=== PATIENT | male | born 1975 | race Caucasian/White ===

== ENCOUNTER → 2016-07-16 | Outpatient (CLI) | payer BC ==
[~2016-07-16] MED LIST: LRT5 PO; PRED50TA PO
--- NOTE | 2016-07-16 08:57 | DIAGNOSTIC IMAGING REPORT ---
MRI OF THE RIGHT KNEE WITHOUT CONTRAST CLINICAL HISTORY: Right knee pain. Evaluate for meniscal tear. COMPARISON STUDY: None. TECHNIQUE: Utilizing a 1.5 Reyna magnet and dedicated coil, multiplanar, multiecho imaging of the right knee was performed without intravenous or intraarticular contrast. FINDINGS: Alignment of the right knee is anatomic. There is no joint effusion. The extensor mechanism is intact. There is no marrow edema or marrow replacement. The cruciate and collateral ligaments are intact. There is no significant chondrosis within the 3 compartments of the right knee. The lateral meniscus is intact. There is mild intrasubstance signal within the body and posterior horn of the medial meniscus without articular surface extension. No mass or fluid collection shown adjacent to the right knee. IMPRESSION: 1. Intact cruciate and collateral ligaments. 2. No definite meniscal tear. Mild intrasubstance signal within the body and posterior horn of the medial meniscus without articular surface extension. The findings do not meet MRI criteria for meniscal tear. Electronically signed by: Jw Cooper M.D. 07/16/2016 8:55 AM Dictated Date/Time: 07/16/2016 8:51 AM
== END | disposition home or self-care (01) ==
LOC: C.MRIBC 07:48
PROVIDERS: ATTEND Orthopaedic Surgery
DX: S83.206A Unspecified tear of unspecified meniscus, current injury, right knee, initial encounter (principal); X58.XXXA Exposure to other specified factors, initial encounter

== ENCOUNTER 2024-12-08 21:30 | Inpatient (IN) ==
[2024-12-08 21:59] LABS: Hematocrit (blood only) 42.2 % (42.0-52.0); Hemoglobin 13.9 g/dl (14.0-18.0); Immature Granulocytes # (auto) 0.05 K/uL (0.01-0.20); Immature Granulocytes % (auto) 0.5 %; Mean Corpuscular Hemoglobin 27.1 pg (25.0-34.0); Mean Corpuscular Volume 82.3 fL (80.0-100.0); Platelet Count 256 K/uL (130-400); RDW Standard Deviation 41.0 fL (36.4-46.3); Red Blood Count 5.13 M/uL (4.70-6.10); White Blood Count 11.08 K/ul (4.8-10.8)
[2024-12-08 22:01] LABS: Appearance Urine Turbid (Clear); Bacteria Urine Automated None Seen (None Seen); Cast Urine Automated 0-2 /lpf (0-2); Epithelial Cell Urine Auto 0-2 /hpf (0-2); Glucose Urine UA Negative (Negative); RBC Urine Automated 0-2 /hpf (0-2); WBC Urine Automated 0-5 /hpf (0-5)
[2024-12-08 22:16] LABS: Alanine Aminotransferase 36.0 U/L (7-52); Albumin Globulin Ratio 1.2 (0.9-2); Alkaline Phosphatase 63.0 U/L (34-104); Anion Gap 7.0 (3-11); Bilirubin,Total 0.6 mg/dl (0.2-1.0); Blood Urea Nitrogen 13.0 mg/dl (6-23); Calcium 9.5 mg/dl (8.6-10.3); Carbon Dioxide 29.0 mmol/L (21-32); Chloride 101.0 mmol/L (98-107); Creatinine Clr Calc Pharmacy 105.0 ml/min; Globulin 3.6 gm/dl (2.5-4.0); Glucose 100.0 mg/dl (70-99(Fasting)); Lipase 46.0 U/L (11-82); Potassium 3.8 mmol/L (3.5-5.1); Sodium 137.0 mmol/L (136-145); Total Protein 8.0 gm/dl (6.0-8.3)
[2024-12-08] MEDS: ONDANSETRON INJ 2 MG/ML 2 ML VIAL IV STA (22:47)
[2024-12-08] MEDS: SODIUM CHLORIDE 0.9% 1,000 ML IV ONE (22:47)
[2024-12-08] MEDS: OPTIRAY 320 100ml IV ONE (22:55)
[2024-12-09] MEDS: SODIUM CHLORIDE 0.9% 1,000 ML IV ONE ×2 (01:29→04:11)
[2024-12-09] MEDS: PIPERACILLIN/TAZOBACTAM 4.5 GM/100 ML BAG IV ONE (01:30)
--- NOTE | 2024-12-09 01:46 | CT Scan Report ---
Exam(s): CT ABDOMEN + PELVIS With Contrast IV Amt: 93ml opti 320 EXAM: CT Abdomen and Pelvis With Intravenous Contrast CLINICAL HISTORY: Reason for exam: lower abd pain, constipation, ventral hernias. TECHNIQUE: Axial computed tomography images of the abdomen and pelvis with intravenous contrast. CTDI is 26 mGy and DLP is 1567 mGy-cm. Automated exposure control was utilized for the study. A dose lowering technique was utilized adhering to the principles of ALARA. CONTRAST: Patient received 93ml opti 320 of IV contrast COMPARISON: Report from prior CT chest and abdomen dated 05/23/2007. Images not available. FINDINGS: Lung bases: Unremarkable. No mass. No consolidation. ABDOMEN: Liver: Hepatic steatosis. Gallbladder and bile ducts: Unremarkable. No calcified stones. No ductal dilation. Pancreas: Unremarkable. No mass. No ductal dilation. Spleen: Unremarkable. No splenomegaly. Adrenals: Unremarkable. No mass. Kidneys and ureters: Unremarkable. No solid mass. No hydronephrosis. Stomach and bowel: Colonic diverticulosis. Redundant sigmoid extends into right lower quadrant where there is wall thickening and moderate fat stranding. Small gas bubble in area of fat stranding. May represent acute diverticulitis with localized perforation. Similar focal sigmoid wall thickening in the left lower quadrant around a diverticulum and mild surrounding fat stranding. No obstruction. PELVIS: Appendix: Normal appendix. Bladder: Unremarkable. No mass. Reproductive: Unremarkable as visualized. ABDOMEN and PELVIS: Intraperitoneal space: See above. No significant fluid collection. Bones/joints: Pectus excavatum deformity. No acute fracture. No dislocation. Soft tissues: Multiple surgical clips in the anterior pelvis/prior hernia repair. Small fat containing inguinal hernias. Vasculature: Unremarkable. No abdominal aortic aneurysm. Lymph nodes: Unremarkable. No enlarged lymph nodes. IMPRESSION: Findings described likely represent acute sigmoid diverticulitis at 2 sites, in the right and left lower quadrants, with localized perforation on the right. No abscess. Also correlate with surgical history as inflammatory changes in the lower quadrants are subjacent to multiple surgical clips/hernia repair. Communications: 12/09/24 01:43 Call Doctor Regarding Above results, called Dr. Leal on 12/09 01:42 (-04:00) Electronically signed by: Cheli Graves M.D. 12/09/24 01:44 AM
--- NOTE | 2024-12-09 01:53 | Emergency Department Note ---
Impression & Plan Diverticulitis of large intestine with complication, Sepsis ED Provider Note NAME: KIANA CANNON AGE: 48 SEX: M : 1975 ARRIVES VIA: Walk-In INFORMANT: Patient ED PROVIDER(S): Adam Huffman DO CHIEF COMPLAINT: lower abdominal pain HPI: This is a 48-year-old male with the PMHx of inguinal hernias s/p bilateral repair presenting to [facility] for further evaluation of abdominal pain. Patient reports over the last few days he has developed lower quadrant abdominal pain. Patient states it is now difficult for him to have a bowel movement. Patient states that he has had intermittent nausea but no episodes emesis. Now having fevers. Patient reports his abdominal surgical history of only bilateral inguinal hernia repairs. This was a number of years ago. Patient states that the pain was severe even with movement and on the car ride over to the emergency department. No urinary complaints. Patient denies recent changes in medications or OTC supplements. Patient offers no other complaints, today. ADDITIONAL HISTORY OBTAINED: Per HPI Chronic Medical/Social Conditions Affecting Care: Per HPI PAST MEDICAL HISTORY: See Below PAST SURGICAL HISTORY: See Below FAMILY HISTORY: See Below SOCIAL HISTORY: See Below HOME MEDICATIONS: See Below ALLERGIES: See Below VITALS: See Below PHYSICAL EXAMINATION: GENERAL: Sitting up in bed, alert, well appearing, well nourished, no distress, non-toxic EYE EXAM: normal conjunctiva. PERRL and EOM's grossly intact. OROPHARYNX: no exudate, no erythema, lips, buccal mucosa, and tongue normal and mucous membranes are dry NECK: supple, no nuchal rigidity, no adenopathy, non-tender LUNGS: Clear to auscultation. Normal chest wall mechanics HEART: no murmurs, regular rate, regular rhythm ABDOMEN: abdomen soft, TTP in the lower quadrants, R>>L, no masses, no rebound or guarding. BACK: Back is symmetrical on inspection and there is no deformity, no midline tenderness, no CVA tenderness. SKIN: no rashes and no bruising UPPER EXTREMITIES: upper extremities are grossly normal. LOWER EXTREMITIES: No pitting edema. NEURO EXAM: Normal sensorium, GCS 15, normal speech, no gross weakness of arms, no gross weakness of legs. MEDICAL DECISION MAKING: Differential diagnoses includes but not limited to Appendicitis, bowel obstruction, diverticulitis, malignancy, nephrolithiasis, gastroenteritis, ACS, PNA, pancreatitis, biliary disease, UTI, STI, testicular torsion, esophageal reflux, gastritis, IBD In summary, this is a 48 year old male who presented with abdominal pain. Differential as above. Nursing notes and pertinent past medical records reviewed. Vital signs reviewed and the patient is febrile with HR >90 but otherwise hemodynamically stable. He appears well overall. Doubt significant sepsis. I do not have a concern for severe sepsis or bacteremia at this time. History and presentation revealed abdominal pain in the settting of prior inguinal surgeries. Would consider SBO as well. Physical examination revealed as above. As a result of my initial evaluation, we will plan for IV fluid resuscitation, antiemetics and pain control. Plan for evaluation with CT abdomen/pelvis. Diagnostics interpreted by me include EKG and cardiac monitoring as listed below: -Cardiac Monitoring: An order was placed for continuous cardiac monitoring. The monitor shows a rate of 60-90s with regular rhythm. -ECG: not obtained Patient completed laboratory studies and imaging. Results independently interpreted by me are minimal WBC. Normal electrolytes, UA and LFTs. The patient was managed with 2L of crystalloid. Fever cleared without antipyretics. His pain and nausea had significantly improved on reevaluation. CT abdomen/pelvis was independently interpreted by me as an area of fat stranding and possible free air in the right lower quadrant. This appears to involve the small bowel. The location does not seem consistent with appendicitis but is still possible. I am concerned for appendicitis versus diverticulitis. Will provide IV antibiotics while awaiting formal reads. Patient was given a additional liter of fluid resuscitation. Provided with IV Zosyn. Discussed with radiology regarding report and it appears the patient has complicated diverticulitis with microperforation. Will plan to admit to the hospital for further care. Patient agreeable to this. On multiple reassessments, the patient's pain and nausea had improved. Patient was discussed with the hospitalist team regarding admission and care management assisted with communication. Patient was accepted by the [facility] hospitalist team for admission for complicated diverticulitis. Consults/Care Managements Discussions: Per [facility] ER treatment provided: See above Procedures:none Critical Care: None The chart was completed utilizing Abigail Stewart voice recognition software. Grammatical errors, random word insertions, pronoun errors, and incomplete sentences are an occasional consequence of this system due to software limitations, ambient noise, and hardware issues. Any formal questions or concerns about the content, text, or information contained within the body of this dictation should be directly addressed to the physician for clarification. Past Med/Surg History Problem List (Updated 12/09/24 @ 23:06 by Adam Huffman DO) Sepsis (Acute) Diverticulitis of large intestine with complication (Acute) Acute diverticulitis of intestine Sepsis Medical History (Updated 12/09/24 @ 23:06 by Adam Huffman DO) No chronic diseases present Surgical History (Updated 08/05/18 @ 18:54 by Maxim Davis PA-C) No significant past surgical history Social History Smoking Status: Former smoker Hx Alcohol Use: Yes Hx Substance Use: No Preferred Language: Hebrew Communication Ability: Effective Current Living Situation: Alone Feels Safe at Home: Yes Assistive Devices: None Allergies Allergies Allergy/AdvReac Type Severity Reaction Status Date / Time No Known Allergies Allergy Verified 12/09/24 02:14 Home Meds Home Medications Medication Instructions Recorded Confirmed escitalopram oxalate 10 mg tablet 10 mg PO QAM 12/09/24 12/09/24 fluticasone propionate 50 2 spray intranasal QAM 12/09/24 12/09/24 mcg/actuation nasal spray,suspension meclizine 25 mg tablet 25 mg PO TID PRN Dizziness Or 12/09/24 12/09/24 Vertigo sildenafil 100 mg tablet 100 mg PO PRN Erectile Dysfunction 12/09/24 Results & Data (ED) Vital Signs Vital Signs - 24 hr 12/09/24 00:23 Pulse Rate [Right Finger] 78 Respiratory Rate 16 Respiratory Depth Normal Blood Pressure [Right Arm] 124/77 Blood Pressure Mean [Right Arm] 92 Pulse Oximetry 95 Laboratory Data 12/09/24 04:27 12/09/24 04:27 Lab Results 12/08/24 Range/Units 21:40 WBC 11.08 H (4.8-10.8) K/ul RBC 5.13 (4.70-6.10) M/uL Hgb 13.9 L (14.0-18.0) g/dl Hct 42.2 (42.0-52.0) % MCV 82.3 (80.0-100.0) fL MCH 27.1 (25.0-34.0) pg MCHC 32.9 (32.0-36.0) g/dL RDW Std Deviation 41.0 (36.4-46.3) fL RDW Coeff of Zaira 13.7 (11.5-14.5) % Plt Count 256 (130-400) K/uL MPV 9.9 (9.4-12.4) fL Immature Gran % (Auto) 0.5 % Neut % (Auto) 73.9 % Lymph % (Auto) 16.7 % Cole % (Auto) 7.1 % Eos % (Auto) 1.4 % Baso % (Auto) 0.4 % Neut # (Auto) 8.19 H (1.40-6.50) K/uL Lymph # (Auto) 1.85 (1.20-3.40) K/uL Cole # (Auto) 0.79 H (0.11-0.59) K/uL Eos # (Auto) 0.16 (0.00-0.50) K/uL Baso # (Auto) 0.04 (0.00-0.20) K/uL Immature Gran # (Auto) 0.05 (0.01-0.20) K/uL Sodium 137 (136-145) mmol/L Potassium 3.8 (3.5-5.1) mmol/L Chloride 101 (98-107) mmol/L Carbon Dioxide 29 (21-32) mmol/L Anion Gap 7 (3-11) BUN 13 (6-23) mg/dl Creatinine 1.03 (0.6-1.4) mg/dl Est Cr Clr Drug Dosing 105.0 ml/min eGFR 89.60 BUN/Creatinine Ratio 12.6 (10-20) Glucose 100 H (70-99(Fasting)) mg/dl Calcium 9.5 (8.6-10.3) mg/dl Total Bilirubin 0.6 (0.2-1.0) mg/dl AST 31 (13-39) U/L ALT 36 (7-52) U/L Alkaline Phosphatase 63 (34-104) U/L Total Protein 8.0 (6.0-8.3) gm/dl Albumin 4.4 (3.4-5.0) gm/dl Globulin 3.6 (2.5-4.0) gm/dl Albumin/Globulin Ratio 1.2 (0.9-2) Lipase 46 (11-82) U/L Urine Color Yellow Urine Appearance Turbid A (Clear) Urine pH >= 9.0 H (4.5-7.5) Ur Specific [place] 1.023 (1.000-1.030) Urine Protein 1+ H (Negative) Urine Glucose (UA) Negative (Negative) Urine Ketones Negative (Negative) Urine Blood Negative (Negative) Urine Nitrite Negative (Negative) Urine Bilirubin Negative (Negative) Urine Urobilinogen Negative (Negative) Ur Leukocyte Esterase Negative (Negative) Urine WBC (Auto) 0-5 (0-5) /hpf Urine RBC (Auto) 0-2 (0-2) /hpf U Hyaline Cast (Auto) 0-2 (0-2) /lpf U Epithel Cells (Auto) 0-2 (0-2) /hpf Urine Bacteria (Auto) None Seen (None Seen) Urine Comment Administered Medications Ciprofloxacin/Dexamethasone (Cipro 0.3%/Dexamethasone 0.1% Otic Susp 7.5ml) 4 drops OTL BID RICK Stop: 01/08/25 05:29 Last Admin: 12/09/24 21:41 Dose: 4 drops Documented By: Admin: 12/09/24 05:57 Dose: 4 drops Documented By: ROLDAN Enoxaparin Sodium (Enoxaparin Inj 40 Mg/0.4 Ml Syr) 40 mg SQ QAM RICK Stop: 01/08/25 08:59 Last Admin: 12/09/24 11:32 Dose: 40 mg Documented By: VIVI Acetaminophen (Ofirmev) 1,000 mg in 100 mls @ 400 mls/hr IV Q8H PRN PRN Reason: pain/fever Stop: 12/12/24 02:01 Last Infusion: 12/09/24 19:09 Dose: Infused Documented By: Admin: 12/09/24 18:21 Dose: 400 mls/hr Documented By: Infusion: 12/09/24 09:31 Dose: Infused Documented By: Admin: 12/09/24 09:14 Dose: 400 mls/hr Documented By: VIVI Piperacillin Sod/Tazobactam Sod (Zosyn) 4.5 gm in 100 mls @ 25 mls/hr IV Q8H [facility]; Protocol Stop: 12/19/24 05:59 Last Admin: 12/09/24 21:41 Dose: 25 mls/hr Documented By: Infusion: 12/09/24 18:20 Dose: Infused Documented By: Admin: 12/09/24 14:16 Dose: 25 mls/hr Documented By: Infusion: 12/09/24 10:00 Dose: Infused Documented By: Admin: 12/09/24 05:57 Dose: 25 mls/hr Documented By: ROLDAN Potassium Chloride/Dextrose/Sod Cl (D5nss + 20meq Kcl) 20 meq in 1,000 mls @ 80 mls/hr IV .[id number] RICK Stop: 12/12/24 13:14 Last Admin: 12/09/24 14:16 Dose: 80 mls/hr Documented By: MÓNICA Ketorolac Tromethamine (Ketorolac Tromethamine 15 Mg/Ml Vial) 15 mg IV Q6H PRN PRN Reason: Pain Stop: 12/14/24 03:03 Last Admin: 12/09/24 16:41 Dose: 15 mg Documented By: Admin: 12/09/24 09:15 Dose: 15 mg Documented By: VIVI Discontinued Medications Fentanyl Citrate (Fentanyl Citrate Pf 100 Mcg/2 Ml Vial) 50 mcg IV NOW ONE Stop: 12/08/24 22:35 Last Admin: 12/08/24 22:47 Dose: 50 mcg Documented By: EVERTON Sodium Chloride (Nss) 1,000 mls @ 999 mls/hr IV .[id number] ONE Stop: 12/08/24 23:34 Last Infusion: 12/09/24 00:20 Dose: Infused Documented By: Admin: 12/08/24 22:47 Dose: 999 mls/hr Documented By: NRB Sodium Chloride (Nss) 1,000 mls @ 999 mls/hr IV .Q1H1M ONE Stop: 12/09/24 02:13 Last Infusion: 12/09/24 02:23 Dose: Infused Documented By: Admin: 12/09/24 01:29 Dose: 999 mls/hr Documented By: mls Piperacillin Sod/Tazobactam Sod (Zosyn) 4.5 gm in 100 mls @ 200 mls/hr IV NOW ONE; Protocol Stop: 12/09/24 01:42 Last Infusion: 12/09/24 02:19 Dose: Infused Documented By: Admin: 12/09/24 01:30 Dose: 200 mls/hr Documented By: chaya Sodium Chloride (Nss) 1,000 mls @ 60 mls/hr IV .[id number] ONE Stop: 12/09/24 19:43 Last Infusion: 12/09/24 13:12 Dose: Infused Documented By: Admin: 12/09/24 04:11 Dose: 60 mls/hr Documented By: KRISTA Ioversol (Optiray 320 100ml) 93 ml IV ONCE ONE Stop: 12/08/24 22:56 Last Admin: 12/08/24 22:55 Dose: 93 ml Documented By: AMINATA Ondansetron HCl (Ondansetron Inj 2 Mg/Ml 2 Ml Vial) 4 mg IV NOW STA Stop: 12/08/24 22:35 Last Admin: 12/08/24 22:47 Dose: 4 mg Documented By: NRB Imaging Data Radiologist's Impression: Abdomen/Pelvis CT 12/08/24 22:34 CR Exam(s): CT ABDOMEN + PELVIS With Contrast IV Amt: 93ml opti 320 EXAM: CT Abdomen and Pelvis With Intravenous Contrast CLINICAL HISTORY: Reason for exam: lower abd pain, constipation, ventral hernias. TECHNIQUE: Axial computed tomography images of the abdomen and pelvis with intravenous contrast. CTDI is 26 mGy and DLP is 1567 mGy-cm. Automated exposure control was utilized for the study. A dose lowering technique was utilized adhering to the principles of ALARA. CONTRAST: Patient received 93ml opti 320 of IV contrast COMPARISON: Report from prior CT chest and abdomen dated 05/23/2007. Images not available. FINDINGS: Lung bases: Unremarkable. No mass. No consolidation. ABDOMEN: Liver: Hepatic steatosis. Gallbladder and bile ducts: Unremarkable. No calcified stones. No ductal dilation. Pancreas: Unremarkable. No mass. No ductal dilation. Spleen: Unremarkable. No splenomegaly. Adrenals: Unremarkable. No mass. Kidneys and ureters: Unremarkable. No solid mass. No hydronephrosis. Stomach and bowel: Colonic diverticulosis. Redundant sigmoid extends into right lower quadrant where there is wall thickening and moderate fat stranding. Small gas bubble in area of fat stranding. May represent acute diverticulitis with localized perforation. Similar focal sigmoid wall thickening in the left lower quadrant around a diverticulum and mild surrounding fat stranding. No obstruction. PELVIS: Appendix: Normal appendix. Bladder: Unremarkable. No mass. Reproductive: Unremarkable as visualized. ABDOMEN and PELVIS: Intraperitoneal space: See above. No significant fluid collection. Bones/joints: Pectus excavatum deformity. No acute fracture. No dislocation. Soft tissues: Multiple surgical clips in the anterior pelvis/prior hernia repair. Small fat containing inguinal hernias. Vasculature: Unremarkable. No abdominal aortic aneurysm. Lymph nodes: Unremarkable. No enlarged lymph nodes. IMPRESSION: Findings described likely represent acute sigmoid diverticulitis at 2 sites, in the right and left lower quadrants, with localized perforation on the right. No abscess. Also correlate with surgical history as inflammatory changes in the lower quadrants are subjacent to multiple surgical clips/hernia repair. Communications: 12/09/24 01:43 Call Doctor Regarding Above results, called Dr. Leal on 12/09 01:42 (-04:00) Electronically signed by: Cheli Graves M.D. 12/09/24 01:44 AM Discharge Plan Visit Data Chief Complaint: Abdominal Pain Stated Complaint: ABD PAIN, FEVER, NAUSEA, HEADACHE, DIZZINESS ED Provider: Adam Huffman Discharge Problem: Diverticulitis of large intestine with complication, Sepsis Patient Disposition: Admitted As Inpatient Condition: Fair Discharge Instructions Interventions: ED Discharge Assessment Last Done: 12/09/24 02:46
--- NOTE | 2024-12-09 02:00 | History & Physical Report ---
Date of Service December 09, 2024 Assessment & Plan (1) Sepsis: Plan: Assessment and plan below following discussion of case with ED provider and reviewing patient history/pertinent normal/abnormal diagnostic test results. Sepsis Secondary to complicated diverticulitis Otitis externa left Persistent left ear pain post outpatient Rx CHANTE on CPAP Mood disorder, stable Past tobacco abuse Admit to MedSurg CS, Zosyn Strict n.p.o. General Surgery consult re: perforated diverticulitis Ciprodex course for otitis externa, outpatient ENT consult as scheduled DVT prophylaxis per Lovenox subcu Full code Text document was generated using [employer] voice recognition software. It may contain grammatical or spelling errors. Kindly contact undersigned for clarification of any documentation item in question. History of Present Illness Chief Complaint: Abdominal pain Primary Care Provider: Kendy Everett MD History obtained from patient and records. Medical history significant for sigmoid diverticulosis, CHANTE on CPAP, mood disorder, past tobacco abuse. Few days ago, patient noted constipation symptoms which escalated to intense pain yesterday. Fever, chills at home. Denies chest pain, SOB. IV Zosyn administered at the ER for perforated diverticulitis. Medical History as above Recent outpatient cefdinir and prednisone course for left ear pain attributed to middle ear congestion. Outpatient ENT consult scheduled January, due to persistent symptoms 2023 colonoscopy showed sigmoid diverticulosis Surgical History : Dental surgery, hernia repair, vasectomy Family History : DM, leukemia, stroke, skin cancer Personal/Social history : Past tobacco abuse, occasional EtOH intake, [employer] employee Allergies Allergy/AdvReac Type Severity Reaction Status Date / Time No Known Allergies Allergy Verified 12/09/24 02:14 Home Medications Medication Instructions Recorded Confirmed Type escitalopram oxalate 10 mg tablet 10 mg PO QAM 12/09/24 12/09/24 History fluticasone propionate 50 2 spray intranasal QAM 12/09/24 12/09/24 History mcg/actuation nasal spray,suspension meclizine 25 mg tablet 25 mg PO TID PRN Dizziness Or 12/09/24 12/09/24 History Vertigo sildenafil 100 mg tablet 100 mg PO PRN Erectile Dysfunction 12/09/24 History Past Med/Surg History Problem List (Updated 12/09/24 @ 23:06 by Adam Huffman DO) Sepsis (Acute) Diverticulitis of large intestine with complication (Acute) Acute diverticulitis of intestine Sepsis Medical History (Updated 12/09/24 @ 23:06 by Adam Huffman DO) No chronic diseases present Surgical History (Updated 08/05/18 @ 18:54 by Maxim Davis PA-C) No significant past surgical history Social History Smoking Status: Former smoker Hx Alcohol Use: Yes Hx Substance Use: No Preferred Language: Eritrean Communication Ability: Effective Current Living Situation: Alone Feels Safe at Home: Yes Assistive Devices: None Review of Systems Review of Systems: As per HPI, all other systems reviewed and negative Physical Exam Physical Exam: GENERAL: Comfortable, pleasant, obese, no respiratory distress SKIN: Normal color, warm HEENT: [place] palpebral conjunctivae, no ptosis, dry buccal mucosa AD: Retained cerumen, intact TM : Retained cerumen, hyperemic EAC, TM not fully visualized NECK : Supple, no tenderness CHEST : CTA, no tenderness HEART : RRR, no obvious murmurs ABDOMEN: Some distention, lower abdominal tenderness EXTREMITIES : No LE swelling/tenderness, palpable pulses, no other conspicuous deformities noted NEUROLOGIC : Coherent, no facial asymmetry, no other gross focality Results & Data Results & Data Vital Signs (Past 12 Hours) Vital Signs Temp Pulse Pulse Resp BP BP Pulse Ox 12/09/24 00:23 78 16 124/77 95 12/08/24 21:32 38.5 C H 95 H 18 152/80 H 96 O2 Del Method 12/09/24 00:23 12/08/24 21:32 Room Air Laboratory Results Laboratory Results WBC 11.08 K/ul (4.8-10.8) H 12/08/24 21:40 RBC 5.13 M/uL (4.70-6.10) 12/08/24 21:40 Hgb 13.9 g/dl (14.0-18.0) L 12/08/24 21:40 Hct 42.2 % (42.0-52.0) 12/08/24 21:40 MCV 82.3 fL (80.0-100.0) 12/08/24 21:40 MCH 27.1 pg (25.0-34.0) 12/08/24 21:40 MCHC 32.9 g/dL (32.0-36.0) 12/08/24 21:40 RDW Std Deviation 41.0 fL (36.4-46.3) 12/08/24 21:40 RDW Coeff of Zaira 13.7 % (11.5-14.5) 12/08/24 21:40 Plt Count 256 K/uL (130-400) 12/08/24 21:40 MPV 9.9 fL (9.4-12.4) 12/08/24 21:40 Immature Gran % (Auto) 0.5 % 12/08/24 21:40 Neut % (Auto) 73.9 % 12/08/24 21:40 Lymph % (Auto) 16.7 % 12/08/24 21:40 [place] % (Auto) 7.1 % 12/08/24 21:40 Eos % (Auto) 1.4 % 12/08/24 21:40 Baso % (Auto) 0.4 % 12/08/24 21:40 Neut # (Auto) 8.19 K/uL (1.40-6.50) H 12/08/24 21:40 Lymph # (Auto) 1.85 K/uL (1.20-3.40) 12/08/24 21:40 [place] # (Auto) 0.79 K/uL (0.11-0.59) H 12/08/24 21:40 Eos # (Auto) 0.16 K/uL (0.00-0.50) 12/08/24 21:40 Baso # (Auto) 0.04 K/uL (0.00-0.20) 12/08/24 21:40 Immature Gran # (Auto) 0.05 K/uL (0.01-0.20) 12/08/24 21:40 Sodium 137 mmol/L (136-145) 12/08/24 21:40 Potassium 3.8 mmol/L (3.5-5.1) 12/08/24 21:40 Chloride 101 mmol/L (98-107) 12/08/24 21:40 Carbon Dioxide 29 mmol/L (21-32) 12/08/24 21:40 Anion Gap 7 (3-11) 12/08/24 21:40 BUN 13 mg/dl (6-23) 12/08/24 21:40 Creatinine 1.03 mg/dl (0.6-1.4) 12/08/24 21:40 Est Cr Clr Drug Dosing 105.0 ml/min 12/08/24 21:40 eGFR 89.60 12/08/24 21:40 BUN/Creatinine Ratio 12.6 (10-20) 12/08/24 21:40 Glucose 100 mg/dl (70-99(Fasting)) H 12/08/24 21:40 Calcium 9.5 mg/dl (8.6-10.3) 12/08/24 21:40 Total Bilirubin 0.6 mg/dl (0.2-1.0) 12/08/24 21:40 AST 31 U/L (13-39) 12/08/24 21:40 ALT 36 U/L (7-52) 12/08/24 21:40 Alkaline Phosphatase 63 U/L (34-104) 12/08/24 21:40 Total Protein 8.0 gm/dl (6.0-8.3) 12/08/24 21:40 Albumin 4.4 gm/dl (3.4-5.0) 12/08/24 21:40 Globulin 3.6 gm/dl (2.5-4.0) 12/08/24 21:40 Albumin/Globulin Ratio 1.2 (0.9-2) 12/08/24 21:40 Lipase 46 U/L (11-82) 12/08/24 21:40 Urine Color Yellow 12/08/24 21:40 Urine Appearance Turbid (Clear) A 12/08/24 21:40 Urine pH >= 9.0 (4.5-7.5) H 12/08/24 21:40 Ur Specific [place] 1.023 (1.000-1.030) 12/08/24 21:40 Urine Protein 1+ (Negative) H 12/08/24 21:40 Urine Glucose (UA) Negative (Negative) 12/08/24 21:40 Urine Ketones Negative (Negative) 12/08/24 21:40 Urine Blood Negative (Negative) 12/08/24 21:40 Urine Nitrite Negative (Negative) 12/08/24 21:40 Urine Bilirubin Negative (Negative) 12/08/24 21:40 Urine Urobilinogen Negative (Negative) 12/08/24 21:40 Ur Leukocyte Esterase Negative (Negative) 12/08/24 21:40 Urine WBC (Auto) 0-5 /hpf (0-5) 12/08/24 21:40 Urine RBC (Auto) 0-2 /hpf (0-2) 12/08/24 21:40 U Hyaline Cast (Auto) 0-2 /lpf (0-2) 12/08/24 21:40 U Epithel Cells (Auto) 0-2 /hpf (0-2) 12/08/24 21:40 Urine Bacteria (Auto) None Seen (None Seen) 12/08/24 21:40 Urine Comment 12/08/24 21:40 Impressions Abdomen/Pelvis CT 12/08/24 22:34 CR Exam(s): CT ABDOMEN + PELVIS With Contrast IV Amt: 93ml opti 320 EXAM: CT Abdomen and Pelvis With Intravenous Contrast CLINICAL HISTORY: Reason for exam: lower abd pain, constipation, ventral hernias. TECHNIQUE: Axial computed tomography images of the abdomen and pelvis with intravenous contrast. CTDI is 26 mGy and DLP is 1567 mGy-cm. Automated exposure control was utilized for the study. A dose lowering technique was utilized adhering to the principles of ALARA. CONTRAST: Patient received 93ml opti 320 of IV contrast COMPARISON: Report from prior CT chest and abdomen dated 05/23/2007. Images not available. FINDINGS: Lung bases: Unremarkable. No mass. No consolidation. ABDOMEN: Liver: Hepatic steatosis. Gallbladder and bile ducts: Unremarkable. No calcified stones. No ductal dilation. Pancreas: Unremarkable. No mass. No ductal dilation. Spleen: Unremarkable. No splenomegaly. Adrenals: Unremarkable. No mass. Kidneys and ureters: Unremarkable. No solid mass. No hydronephrosis. Stomach and bowel: Colonic diverticulosis. Redundant sigmoid extends into right lower quadrant where there is wall thickening and moderate fat stranding. Small gas bubble in area of fat stranding. May represent acute diverticulitis with localized perforation. Similar focal sigmoid wall thickening in the left lower quadrant around a diverticulum and mild surrounding fat stranding. No obstruction. PELVIS: Appendix: Normal appendix. Bladder: Unremarkable. No mass. Reproductive: Unremarkable as visualized. ABDOMEN and PELVIS: Intraperitoneal space: See above. No significant fluid collection. Bones/joints: Pectus excavatum deformity. No acute fracture. No dislocation. Soft tissues: Multiple surgical clips in the anterior pelvis/prior hernia repair. Small fat containing inguinal hernias. Vasculature: Unremarkable. No abdominal aortic aneurysm. Lymph nodes: Unremarkable. No enlarged lymph nodes. IMPRESSION: Findings described likely represent acute sigmoid diverticulitis at 2 sites, in the right and left lower quadrants, with localized perforation on the right. No abscess. Also correlate with surgical history as inflammatory changes in the lower quadrants are subjacent to multiple surgical clips/hernia repair. Communications: 12/09/24 01:43 Call Doctor Regarding Above results, called Dr. Leal on 12/09 01:42 (-04:00) Electronically signed by: Cheli Graves M.D. 12/09/24 01:44 AM
[2024-12-09] MEDS ORDERED: PROMETHAZINE 12.5 MG/50.5 ML BAG IV PRN (02:02)
[2024-12-09 04:51] LABS: Hematocrit (blood only) 35.7 % (42.0-52.0); Hemoglobin 11.9 g/dl (14.0-18.0); Immature Granulocytes # (auto) 0.02 K/uL (0.01-0.20); Immature Granulocytes % (auto) 0.2 %; Mean Corpuscular Hemoglobin 27.6 pg (25.0-34.0); Mean Corpuscular Volume 82.8 fL (80.0-100.0); Platelet Count 195 K/uL (130-400); RDW Standard Deviation 41.9 fL (36.4-46.3); Red Blood Count 4.31 M/uL (4.70-6.10); White Blood Count 8.22 K/ul (4.8-10.8)
[2024-12-09 05:06] LABS: Anion Gap 4.0 (3-11); Blood Urea Nitrogen 12.0 mg/dl (6-23); Calcium 8.2 mg/dl (8.6-10.3); Carbon Dioxide 24.0 mmol/L (21-32); Chloride 107.0 mmol/L (98-107); Creatinine Clr Calc Pharmacy 124.3 ml/min; Glucose 102.0 mg/dl (70-99(Fasting)); Potassium 3.8 mmol/L (3.5-5.1); Sodium 135.0 mmol/L (136-145)
[2024-12-09] MEDS: CIPRO 0.3%/DEXAMETHASONE 0.1% OTIC SUSP 7.5ML OTL SCH (05:57)
[2024-12-09] MEDS: PIPERACILLIN/TAZOBACTAM 4.5 GM/100 ML BAG IV SCH (05:57)
[2024-12-09] MEDS: ACETAMINOPHEN 1,000 MG/100 ML VIAL IV PRN (09:14)
[2024-12-09] MEDS: KETOROLAC TROMETHAMINE 15 MG/ML VIAL IV PRN (09:15)
--- NOTE | 2024-12-09 09:51 | Surgery Consultation ---
Date of Consultation December 09, 2024 Assessment & Plan (1) Acute diverticulitis of intestine: Plan 2 areas involving the left colon. The more distal area contains a small localized perforation No acute surgical intervention, agree with conservative management Continue IV abx, IVF, strict NPO May have chemical DVT ppx. SCDs while in bed and ambulate as tolerated Antiemetic and pain control as needed History of Present Illness Attending Physician: Edison Banuelos MD History of Present Illness 48M PSHx includes an umbilical hernia repair 2019 and potential questionable b/l inguinal hernia repairs 2018 the patient is unsure, he has no significant PMHx. Patient presented to the ED lst night due to ongoing abdominal pain. He was feeling really gassy starting Thursday night. By am he began having lower abdominal pain. By 7:30/8:pm last night he began having increased pain, fever, nausea, cold sweats and dizziness and presented to the ED last night around 9:00pm. He reports he has been having irregular BMs since about Thursday. This am on my discussion with the patient he states he is managing the pain, feeling a lot better than he did when he came in last night. He states he has never had pain like this in the past and was unaware that he had diverticulosis. Last colonoscopy 1 year ago in August and was reportedly WNL. No known FHX of colon cancer. ED work up revealed an initial fever at 38.5, a mild leukocytosis on initial blood work at 11.03 that has since resolved. CT A/P reveals inflammation at the descending colon in an area of diverticulosis in addition to inflammation at an area of the sigmoid colon where diverticulosis is also present that sits on the right side of the abdomen. This appears to be diverticulitis at both locations with a contained perforation on the right. Allergies Allergy/AdvReac Type Severity Reaction Status Date / Time No Known Allergies Allergy Verified 12/09/24 02:14 Home Medications Medication Instructions Recorded Confirmed Type escitalopram oxalate 10 mg tablet 10 mg PO QAM 12/09/24 12/09/24 History fluticasone propionate 50 2 spray intranasal QAM 12/09/24 12/09/24 History mcg/actuation nasal spray,suspension meclizine 25 mg tablet 25 mg PO TID PRN Dizziness Or 08/22/25 08/22/25 History Vertigo sildenafil 100 mg tablet 100 mg PO PRN Erectile Dysfunction 12/09/24 History Patient History Medical History (Updated 12/09/24 @ 10:14 by Hema Collins DO) No chronic diseases present Surgical History (Updated 08/05/18 @ 18:54 by Maxim Davis PA-C) No significant past surgical history Social History Smoking Status: Former smoker Hx Alcohol Use: Yes Hx Substance Use: No Preferred Language: Greenlandic Current Living Situation: Alone Feels Safe at Home: Yes Review of Systems Constitutional: + fever, + chills and + sweats; no body aches and no weakness Respiratory: no cough, no chest congestion, no dyspnea and no wheezing Cardiovascular: no chest pain, no palpitations, no syncope and no edema Gastrointestinal: + abdominal pain (lower abdomen) and + n ausea; no vomiting and no diarrhea/loose stools Physical Exam Constitutional: well developed and healthy appearing; not disheveled, not in distress and not diaphoretic Respiratory: normal respiratory effort; no respiratory distress, no labored breathing and does not use accessory muscles Cardiovascular: Rate/Rhythm: regular rate; not tachycardic Extremities: no calf tenderness and no edema Gastrointestinal (Abdomen): Percussion/Palpation: + abdomen tender (b/l lower abdomen), + guarding (voluntary) and abdomen soft; abdomen not rigid and abdomen not firm Results & Data Vital Signs (Past 12 Hours) Vital Signs Temp Pulse Resp BP Pulse Ox O2 Del Method 12/09/24 09:10 69 18 139/80 95 Room Air 12/09/24 03:09 37.4 C 68 18 129/76 95 Room Air 12/09/24 00:23 78 16 124/77 95 Diagnostic Findings I personally reviewed his CT A/P revealing diverticulitis in two parts of the left colon. The more distal area of inflammation in the left colon is at the sigmoid colon which sits on the right side of the abdomen. Results Complete Blood Count Results: RBC 4.31 M/uL (4.70-6.10) L 12/09/24 WBC 8.22 K/ul (4.8-10.8) 12/09/24 Hgb 11.9 g/dl (14.0-18.0) L 12/09/24 Hct 35.7 % (42.0-52.0) L 12/09/24 Plt Count 195 K/uL (130-400) 12/09/24 Results CMP Results: Sodium 135 mmol/L (136-145) L 12/09/24 Potassium 3.8 mmol/L (3.5-5.1) 12/09/24 Chloride 107 mmol/L (98-107) 12/09/24 Carbon Dioxide 24 mmol/L (21-32) 12/09/24 Anion Gap 4 (3-11) 12/09/24 BUN 12 mg/dl (6-23) 12/09/24 Creatinine 0.87 mg/dl (0.6-1.4) 12/09/24 eGFR 106.44 12/09/24 BUN/Creatinine Ratio 13.8 (10-20) 12/09/24 Glucose 102 mg/dl (70-99(Fasting)) H 12/09/24 Calcium 8.2 mg/dl (8.6-10.3) L 12/09/24 Total Bilirubin 0.6 mg/dl (0.2-1.0) 12/08/24 AST 31 U/L (13-39) 12/08/24 ALT 36 U/L (7-52) 12/08/24 Alkaline Phosphatase 63 U/L (34-104) 12/08/24 Total Protein 8.0 gm/dl (6.0-8.3) 12/08/24 Albumin 4.4 gm/dl (3.4-5.0) 12/08/24 Globulin 3.6 gm/dl (2.5-4.0) 12/08/24 Albumin/Globulin Ratio 1.2 (0.9-2) 12/08/24 PG Care Time/CCT Total # of Minutes Spent Total Time Spent with Patient: Total time spent is greater than 50% in coordination of care (as documented) at patient's floor/unit and/or counseling patient: Coding Level of Care Code 26915 OFFICE CONSULT LVL Diagnoses Acute diverticulitis of intestine K57.92
[2024-12-09] MEDS: ENOXAPARIN INJ 40 MG/0.4 ML SYR SQ SCH (11:32)
[2024-12-09] MEDS: D5NSS + 20MEQ KCL 20 MEQ/1,000 ML BAG IV SCH (14:16)
--- NOTE | 2024-12-09 17:39 | Hospitalist Progress Note ---
Date of Service December 09, 2024 Assessment & Plan (1) Sepsis: Plan: Assessment and plan below following discussion of case with ED provider and reviewing patient history/pertinent normal/abnormal diagnostic test results. Sepsis Secondary to complicated diverticulitis Otitis externa left Persistent left ear pain post outpatient Rx CHANTE on CPAP Mood disorder, stable Past tobacco abuse Admit to [facility] n.p.o. General Surgery consult re: perforated diverticulitis Ciprodex course for otitis externa, outpatient ENT consult as scheduled DVT prophylaxis per Lovenox subcu Full code Text document was generated using [employer] recognition software. It may contain grammatical or spelling errors. Kindly contact undersigned for clarification of any documentation item in question. Admission and Anticipated Discharge Date Admission Date: December 09, 2024 Results & Data Results & Data Vital Signs (Past 12 Hours) Vital Signs Temp Pulse Resp BP Pulse Ox O2 Del Method 12/09/24 13:05 36.9 C 95 H 18 145/83 H 95 Room Air 12/09/24 09:10 69 18 139/80 95 Room Air
[2024-12-10 06:58] LABS: Hematocrit (blood only) 37.0 % (42.0-52.0); Hemoglobin 12.4 g/dl (14.0-18.0); Immature Granulocytes # (auto) 0.04 K/uL (0.01-0.20); Immature Granulocytes % (auto) 0.5 %; Mean Corpuscular Hemoglobin 27.7 pg (25.0-34.0); Mean Corpuscular Volume 82.6 fL (80.0-100.0); Platelet Count 218 K/uL (130-400); RDW Standard Deviation 40.6 fL (36.4-46.3); Red Blood Count 4.48 M/uL (4.70-6.10); White Blood Count 8.39 K/ul (4.8-10.8)
[2024-12-10 08:00] LABS: Alanine Aminotransferase 48.0 U/L (7-52); Albumin Globulin Ratio 1.1 (0.9-2); Alkaline Phosphatase 54.0 U/L (34-104); Anion Gap 6.0 (3-11); Bilirubin,Total 1.2 mg/dl (0.2-1.0); Blood Urea Nitrogen 9.0 mg/dl (6-23); Calcium 9.0 mg/dl (8.6-10.3); Carbon Dioxide 26.0 mmol/L (21-32); Chloride 106.0 mmol/L (98-107); Creatinine Clr Calc Pharmacy 128.7 ml/min; Globulin 3.3 gm/dl (2.5-4.0); Glucose 109.0 mg/dl (70-99(Fasting)); Potassium 4.0 mmol/L (3.5-5.1); Sodium 138.0 mmol/L (136-145); Total Protein 7.0 gm/dl (6.0-8.3)
--- NOTE | 2024-12-10 08:15 | Surgery Progress Note ---
Date of Service December 10, 2024 Assessment & Plan (1) Acute diverticulitis of intestine: Plan Continue with current conservative measures with IV abx, IVF Pt may have a few ice chips today for mouth comfort, otherwise maintain NPO status May have chemical and mechanical DVT ppx, ambulate Surgery will continue to follow Admission and Anticipated Discharge Date Admission Date: December 09, 2024 Subjective Pt seen and examined this am. He states his pain is improved this am compared to this time yesterday. Continues to pass flatus. [place] his fever broke last night and he had sweats this am. Did have a temp recorded at 2300 last night. Physical Exam Constitutional: average body habitus; not ill appearing, not in distress and not diaphoretic Respiratory: normal respiratory effort; no respiratory distress, no labored breathing and does not use accessory muscles Cardiovascular: Rate/Rhythm: regular rate; not tachycardic Gastrointestinal (Abdomen): Inspection/Auscultation: abdomen not distended Percussion/Palpation: + abdomen tender (lower abdomen greatest suprapubic) and abdomen soft; no guarding and abdomen not rigid Results & Data Vital Signs (Past 12 Hours) Vital Signs Temp Pulse Resp BP Pulse Ox O2 Del Method 12/10/24 07:54 37 C 71 16 131/79 94 Room Air 12/09/24 23:07 37.8 C H 60 18 132/72 99 Room Air Results Complete Blood Count Results: RBC 4.48 M/uL (4.70-6.10) L 12/10/24 WBC 8.39 K/ul (4.8-10.8) 12/10/24 Hgb 12.4 g/dl (14.0-18.0) L 12/10/24 Hct 37.0 % (42.0-52.0) L 12/10/24 Plt Count 218 K/uL (130-400) 12/10/24 Results CMP Results: Sodium 138 mmol/L (136-145) 12/10/24 Potassium 4.0 mmol/L (3.5-5.1) 12/10/24 Chloride 106 mmol/L (98-107) 12/10/24 Carbon Dioxide 26 mmol/L (21-32) 12/10/24 Anion Gap 6 (3-11) 12/10/24 BUN 9 mg/dl (6-23) 12/10/24 Creatinine 0.84 mg/dl (0.6-1.4) 12/10/24 eGFR 107.57 12/10/24 BUN/Creatinine Ratio 10.7 (10-20) 12/10/24 Glucose 109 mg/dl (70-99(Fasting)) H 12/10/24 Calcium 9.0 mg/dl (8.6-10.3) 12/10/24 Total Bilirubin 1.2 mg/dl (0.2-1.0) H 12/10/24 AST 30 U/L (13-39) 12/10/24 ALT 48 U/L (7-52) 12/10/24 Alkaline Phosphatase 54 U/L (34-104) 12/10/24 Total Protein 7.0 gm/dl (6.0-8.3) 12/10/24 Albumin 3.7 gm/dl (3.4-5.0) 12/10/24 Globulin 3.3 gm/dl (2.5-4.0) 12/10/24 Albumin/Globulin Ratio 1.1 (0.9-2) 12/10/24 PG Care Time/CCT Total # of Minutes Spent Total Time Spent with Patient: Total time spent is greater than 50% in coordination of care (as documented) at patient's floor/unit and/or counseling patient: Coding Level of Care Code 02270 SUB INP/OBS CARE 05/14MIN Diagnoses Acute diverticulitis of intestine K57.92
[2024-12-10 13:48] VITALS: RESP 18
--- NOTE | 2024-12-10 18:27 | Hospitalist Progress Note ---
Date of Service December 10, 2024 Assessment & Plan (1) Sepsis: Plan: Assessment and plan below following discussion of case with ED provider and reviewing patient history/pertinent normal/abnormal diagnostic test results. Sepsis Secondary to complicated diverticulitis - clinically improving fever resolving - blood cultures pending - continue IV Zosyn started on ice chips continue IV fluids - appreciate Gen Surg recommendations Otitis externa left Persistent left ear pain post outpatient Rx CHANTE on CPAP Mood disorder, stable Past tobacco abuse DVT prophylaxis per Lovenox subcu Full code Admission and Anticipated Discharge Date Admission Date: December 09, 2024 Subjective seen resting in bed, comfortable states abdominal pain is better no nausea no BMs yet, (+) flatus no fever/chills no chest pain, dyspnea, palpitations, dizziness no other symptoms Review of Systems Review of Systems: all noted and negative except for above Physical Exam Physical Exam: General- oriented x 3, not in distress, speaks in sentences with no effort or accessory muscle use Eyes- anicteric Neck- no JVD Lungs- clear breath sounds bilaterally, no rales/wheezes Heart- normal rate, regular rhythm; no murmurs Abdomen- normal bowel sounds, nondistended, soft, very mild tenderness lower quadrants Extremities- no pretibial edema, no calf tenderness Neuro- alert, oriented x 3; no gross focal neurologic deficits Skin- warm & dry Results & Data Results & Data Vital Signs (Past 12 Hours) Vital Signs Temp Pulse Resp BP Pulse Ox O2 Del Method 12/10/24 13:47 37.5 C 92 H 18 128/76 93 Room Air 12/10/24 07:54 37 C 71 16 131/79 94 Room Air all noted and reviewed including below
--- NOTE | 2024-12-11 05:04 | Surgery Progress Note ---
Date of Service December 11, 2024 Assessment & Plan (1) Acute diverticulitis of intestine: Plan: Patient has been admitted on the hospitalist service. Surgical recommendations are as follows: Continue analgesics as needed Continue antiemetics as needed Continue antibiotics in the form of Zosyn Patient is currently n.p.o.can consider resuming diet beginning with clear liquids only if he continues to show clinical improvement this morning Continue IV fluids while n.p.o. for hydration Lovenox is in place for DVT prevention Admission and Anticipated Discharge Date Admission Date: December 09, 2024 Supervising Physician Co-Signing Physician Notes I have seen and examined this patient this am and I agree with this plan, he may have clears. 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 May consider home tomorrow depending on how diet initiation goes today. Subjective Patient is currently resting comfortably in the bed. He notes that he has had significant improvement of his abdominal pain since he has been admitted. He denies any nausea or vomiting. He is passing flatus but has not had a bowel movement since admission. He notes he is urinating without difficulty. Physical Exam Gastrointestinal (Abdomen): Abdomen is soft without distention. There is no rebound tenderness or guarding the patient has pain with palpation which appears to be greatest in the lower abdomen. Results & Data Vital Signs (Past 12 Hours) Vital Signs Temp Pulse Resp BP Pulse Ox O2 Del Method 12/10/24 22:49 36.8 C 72 18 125/75 94 Room Air PG Care Time/CCT Total # of Minutes Spent Total Time Spent with Patient: Total time spent is greater than 50% in coordination of care (as documented) at patient's floor/unit and/or counseling patient: Coding Level of Care Code 66434 SUB INP/OBS CARE 05/14MIN Diagnoses Acute diverticulitis of intestine K57.92
[2024-12-11 09:05] LABS: Hematocrit (blood only) 38.3 % (42.0-52.0); Hemoglobin 12.8 g/dl (14.0-18.0); Immature Granulocytes # (auto) 0.04 K/uL (0.01-0.20); Immature Granulocytes % (auto) 0.5 %; Mean Corpuscular Hemoglobin 26.8 pg (25.0-34.0); Mean Corpuscular Volume 80.1 fL (80.0-100.0); Platelet Count 227 K/uL (130-400); RDW Standard Deviation 38.3 fL (36.4-46.3); Red Blood Count 4.78 M/uL (4.70-6.10); White Blood Count 8.41 K/ul (4.8-10.8)
[2024-12-11 09:21] LABS: Alanine Aminotransferase 50.0 U/L (7-52); Albumin Globulin Ratio 1.1 (0.9-2); Alkaline Phosphatase 58.0 U/L (34-104); Anion Gap 10.0 (3-11); Bilirubin,Total 1.1 mg/dl (0.2-1.0); Blood Urea Nitrogen 11.0 mg/dl (6-23); Calcium 9.4 mg/dl (8.6-10.3); Carbon Dioxide 23.0 mmol/L (21-32); Chloride 104.0 mmol/L (98-107); Creatinine Clr Calc Pharmacy 159.0 ml/min; Globulin 3.6 gm/dl (2.5-4.0); Glucose 107.0 mg/dl (70-99(Fasting)); Potassium 3.8 mmol/L (3.5-5.1); Sodium 137.0 mmol/L (136-145); Total Protein 7.5 gm/dl (6.0-8.3)
--- NOTE | 2024-12-11 18:54 | Hospitalist Progress Note ---
Date of Service December 11, 2024 Assessment & Plan (1) Sepsis: Plan: Assessment and plan below following discussion of case with ED provider and reviewing patient history/pertinent normal/abnormal diagnostic test results. Sepsis Secondary to complicated diverticulitis - clinically improving fever resolving - blood cultures pending - continue IV Zosyn started on ice chips continue IV fluids - appreciate Gen Surg recommendations 12/11 continues to improve overall pain improving, afebrile blood cultures negative so far continue IV Zosyn diet advanced to clears if tolerated, soft diet for breakfast and hopefully discharge if tolerated patient will need colonoscopy 4-6 weeks after this episode Otitis externa left Persistent left ear pain post outpatient Rx CHANTE on CPAP Mood disorder, stable Past tobacco abuse DVT prophylaxis per Lovenox subcu Full code Admission and Anticipated Discharge Date Admission Date: December 09, 2024 Subjective seen resting in bed, comfortable very pleasant states he feels improved day by day less abdominal pain, very minimal about 2/10 no nausea/vomiting (+)normal BM this morning no chills no other symptoms Review of Systems Review of Systems: all noted and negative except for above Physical Exam Physical Exam: General- oriented x 3, not in distress, speaks in sentences with no effort or accessory muscle use Eyes- anicteric Neck- no JVD Lungs- clear breath sounds bilaterally, no rales/wheezes Heart- normal rate, regular rhythm; no murmurs Abdomen- normal bowel sounds, nondistended, soft, very minimal tenderness lower abdomen Extremities- no pretibial edema, no calf tenderness Neuro- alert, oriented x 3; no gross focal neurologic deficits Skin- warm & dry Results & Data Results & Data Vital Signs (Past 12 Hours) Vital Signs Temp Pulse Resp BP Pulse Ox O2 Del Method 12/11/24 14:35 37.6 C H 77 18 125/73 96 Room Air 12/11/24 07:03 36.8 C 76 18 128/76 96 Room Air all noted and reviewed including below
[2024-12-11 22:44] VITALS: PULSE 74
[2024-12-12 06:58] LABS: Hematocrit (blood only) 39.6 % (42.0-52.0); Hemoglobin 13.0 g/dl (14.0-18.0); Immature Granulocytes # (auto) 0.04 K/uL (0.01-0.20); Immature Granulocytes % (auto) 0.6 %; Mean Corpuscular Hemoglobin 27.0 pg (25.0-34.0); Mean Corpuscular Volume 82.3 fL (80.0-100.0); Platelet Count 243 K/uL (130-400); RDW Standard Deviation 39.7 fL (36.4-46.3); Red Blood Count 4.81 M/uL (4.70-6.10); White Blood Count 6.26 K/ul (4.8-10.8)
[2024-12-12 07:08] VITALS: BP 116/75; TEMP 97.9; O2SAT 96
[2024-12-12 07:33] LABS: Alanine Aminotransferase 48.0 U/L (7-52); Albumin Globulin Ratio 1.0 (0.9-2); Alkaline Phosphatase 56.0 U/L (34-104); Anion Gap 7.0 (3-11); Bilirubin,Total 0.7 mg/dl (0.2-1.0); Blood Urea Nitrogen 10.0 mg/dl (6-23); Calcium 9.6 mg/dl (8.6-10.3); Carbon Dioxide 28.0 mmol/L (21-32); Chloride 104.0 mmol/L (98-107); Creatinine Clr Calc Pharmacy 115.0 ml/min; Globulin 3.7 gm/dl (2.5-4.0); Glucose 95.0 mg/dl (70-99(Fasting)); Magnesium 2.2 mg/dl (1.7-2.4); Potassium 3.9 mmol/L (3.5-5.1); Sodium 139.0 mmol/L (136-145); Total Protein 7.5 gm/dl (6.0-8.3)
--- NOTE | 2024-12-12 08:29 | Surgery Progress Note ---
Date of Service December 12, 2024 Assessment & Plan (1) Diverticulitis of large intestine with complication: Plan: Patient here with acute diverticulitis with perforation WBC 6. vitals stable, patient afebrile doing well over the wknd, advanced to liquids with no issues. pain improving. + bowel function may advance to low fiber to continue over the next several wkds and transition to a course of oral abx for home okay for dispo from our standpoint Admission and Anticipated Discharge Date Admission Date: December 09, 2024 Supervising Physician Co-Signing Physician Notes I have seen and examined this patient this am and I agree with this plan. Subjective Patient is feeling well. Pain overall improved. Tolerating liquid diet without n/v. Having + bowel function Physical Exam Physical Exam: awake/alert, no distress Gastrointestinal (Abdomen): improved tenderness overall, mild residual RLQ discomfort to palpation remains Results & Data Vital Signs (Past 12 Hours) Vital Signs Temp Pulse Resp BP Pulse Ox O2 Del Method 12/12/24 07:50 Room Air 12/12/24 07:07 97.9 F 74 18 116/75 96 Room Air 12/11/24 22:43 98.8 F 74 18 121/72 95 Room Air PG Care Time/CCT Total # of Minutes Spent Total Time Spent with Patient: Total time spent is greater than 50% in coordination of care (as documented) at patient's floor/unit and/or counseling patient: Coding Level of Care Code 45613 Post Operative Follow-Up Diagnoses Diverticulitis of large intestine with complication K57.32
--- NOTE | 2024-12-12 12:40 | Discharge Summary ---
Discharge Summary Date of Service December 12, 2024 delayed entry date of service noted above Principal Dx & Hospital Course #1 = Principal Diagnosis (1) Sepsis: 1) Sepsis: Plan: Assessment and plan below following discussion of case with ED provider and reviewing patient history/pertinent normal/abnormal diagnostic test results. Sepsis Secondary to complicated diverticulitis CT abdomen: IMPRESSION: Findings described likely represent acute sigmoid diverticulitis at 2 sites, in the right and left lower quadrants, with localized perforation on the right. No abscess. Also correlate with surgical history as inflammatory changes in the lower quadrants are subjacent to multiple surgical clips/hernia repair. evaluated by General Surgery placed on IV Zosyn, bowel rest, IV fluids, pain medications as needed patient's symptoms improved daily afebrile blood cultures negative diet advanced gradually cleared for discharge by General Surgery discharged on 11 more days of Augmentin to complete 14 day course of antibiotics patient will need colonoscopy 4-6 weeks after this episode Otitis externa left Persistent left ear pain post outpatient Rx discharged on Ciprodex drops 4 more days CHANTE on CPAP Mood disorder, stable Past tobacco abuse Disposition Discharge to home ff up with PCP in 1 week Notes For Next Care Provider Medication Changes From Visit per medical reconciliation Admission HPI Per Admitting Provider History obtained from patient and records. Medical history significant for sigmoid diverticulosis, CHANTE on CPAP, mood disorder, past tobacco abuse. Few days ago, patient noted constipation symptoms which escalated to intense pain yesterday. Fever, chills at home. Denies chest pain, SOB. IV Zosyn administered at the ER for perforated diverticulitis. Medical History as above Recent outpatient cefdinir and prednisone course for left ear pain attributed to middle ear congestion. Outpatient ENT consult scheduled January, due to persistent symptoms 2023 colonoscopy showed sigmoid diverticulosis Surgical History : Dental surgery, hernia repair, vasectomy Family History : DM, leukemia, stroke, skin cancer Personal/Social history : Past tobacco abuse, occasional EtOH intake, [employer] employee Admission Exam Per Admitting Provider GENERAL: Comfortable, pleasant, obese, no respiratory distress SKIN: Normal color, warm HEENT: [place] palpebral conjunctivae, no ptosis, dry buccal mucosa AD: Retained cerumen, intact TM : Retained cerumen, hyperemic EAC, TM not fully visualized NECK : Supple, no tenderness CHEST : CTA, no tenderness HEART : RRR, no obvious murmurs ABDOMEN: Some distention, lower abdominal tenderness EXTREMITIES : No LE swelling/tenderness, palpable pulses, no other conspicuous deformities noted NEUROLOGIC : Coherent, no facial asymmetry, no other gross focality Discharge Exam General- oriented x 3, not in distress, speaks in sentences with no effort or accessory muscle use Eyes- anicteric Neck- no JVD Lungs- clear breath sounds bilaterally, no rales/wheezes Heart- normal rate, regular rhythm; no murmurs Abdomen- normal bowel sounds, nondistended, soft, nontender Extremities- no pretibial edema, no calf tenderness Neuro- alert, oriented x 3; no gross focal neurologic deficits Skin- warm & dry Updated Medication List Medication Instructions Recorded Confirmed Type escitalopram oxalate 10 mg tablet 10 mg PO QAM 12/09/24 12/09/24 History fluticasone propionate 50 2 spray intranasal QAM 12/09/24 12/09/24 History mcg/actuation nasal spray,suspension meclizine 25 mg tablet 25 mg PO TID PRN Dizziness Or 12/09/24 12/09/24 History Vertigo sildenafil 100 mg tablet 100 mg PO PRN Erectile Dysfunction 12/09/24 History amoxicillin 875 mg-potassium 1 tab PO BID 11 days #22 tabs 12/12/24 Rx clavulanate 125 mg tablet ciprofloxacin 0.3 %-dexamethasone 4 drp OTL BID 7 days #7.5 mL 12/12/24 Rx 0.1 % ear drops,suspension Hospital Stay Data Consultations 12/09/24 01:53 ED Decision to Admit Stat 12/09/24 03:05 Consult General Surgery Routine Diagnostic Imagining Performed 12/08/24 22:34 CT abd pelvis IV con only Stat Laboratory Results WBC 6.26 K/ul (4.8-10.8) 12/12/24 06:32 RBC 4.81 M/uL (4.70-6.10) 12/12/24 06:32 Hgb 13.0 g/dl (14.0-18.0) L 12/12/24 06:32 Hct 39.6 % (42.0-52.0) L 12/12/24 06:32 MCV 82.3 fL (80.0-100.0) 12/12/24 06:32 MCH 27.0 pg (25.0-34.0) 12/12/24 06:32 MCHC 32.8 g/dL (32.0-36.0) 12/12/24 06:32 RDW Std Deviation 39.7 fL (36.4-46.3) 12/12/24 06:32 RDW Coeff of Zaira 13.2 % (11.5-14.5) 12/12/24 06:32 Plt Count 243 K/uL (130-400) 12/12/24 06:32 MPV 9.7 fL (9.4-12.4) 12/12/24 06:32 Immature Gran % (Auto) 0.6 % 12/12/24 06:32 Neut % (Auto) 61.6 % 12/12/24 06:32 Lymph % (Auto) 23.8 % 12/12/24 06:32 [place] % (Auto) 10.2 % 12/12/24 06:32 Eos % (Auto) 3.0 % 12/12/24 06:32 Baso % (Auto) 0.8 % 12/12/24 06:32 Neut # (Auto) 3.85 K/uL (1.40-6.50) 12/12/24 06:32 Lymph # (Auto) 1.49 K/uL (1.20-3.40) 12/12/24 06:32 Bradley # (Auto) 0.64 K/uL (0.11-0.59) H 12/12/24 06:32 Eos # (Auto) 0.19 K/uL (0.00-0.50) 12/12/24 06:32 Baso # (Auto) 0.05 K/uL (0.00-0.20) 12/12/24 06:32 Immature Gran # (Auto) 0.04 K/uL (0.01-0.20) 12/12/24 06:32 Sodium 139 mmol/L (136-145) 12/12/24 06:32 Potassium 3.9 mmol/L (3.5-5.1) 12/12/24 06:32 Chloride 104 mmol/L (98-107) 12/12/24 06:32 Carbon Dioxide 28 mmol/L (21-32) 12/12/24 06:32 Anion Gap 7 (3-11) 12/12/24 06:32 BUN 10 mg/dl (6-23) 12/12/24 06:32 Creatinine 0.94 mg/dl (0.6-1.4) 12/12/24 06:32 Est Cr Clr Drug Dosing 115.0 ml/min 12/12/24 06:32 eGFR 100.00 12/12/24 06:32 BUN/Creatinine Ratio 10.6 (10-20) 12/12/24 06:32 Glucose 95 mg/dl (70-99(Fasting)) 12/12/24 06:32 Lactate 0.6 mmol/L (0.4-2.0) 12/09/24 02:02 Calcium 9.6 mg/dl (8.6-10.3) 12/12/24 06:32 Magnesium 2.2 mg/dl (1.7-2.4) 12/12/24 06:32 Total Bilirubin 0.7 mg/dl (0.2-1.0) 12/12/24 06:32 AST 21 U/L (13-39) 12/12/24 06:32 ALT 48 U/L (7-52) 12/12/24 06:32 Alkaline Phosphatase 56 U/L (34-104) 12/12/24 06:32 Total Protein 7.5 gm/dl (6.0-8.3) 12/12/24 06:32 Albumin 3.8 gm/dl (3.4-5.0) 12/12/24 06:32 Globulin 3.7 gm/dl (2.5-4.0) 12/12/24 06:32 Albumin/Globulin Ratio 1.0 (0.9-2) 12/12/24 06:32 Lipase 46 U/L (11-82) 12/08/24 21:40 Urine Color Yellow 12/08/24 21:40 Urine Appearance Turbid (Clear) A 12/08/24 21:40 Urine pH >= 9.0 (4.5-7.5) H 12/08/24 21:40 Ur Specific [place] 1.023 (1.000-1.030) 12/08/24 21:40 Urine Protein 1+ (Negative) H 12/08/24 21:40 Urine Glucose (UA) Negative (Negative) 12/08/24 21:40 Urine Ketones Negative (Negative) 12/08/24 21:40 Urine Blood Negative (Negative) 12/08/24 21:40 Urine Nitrite Negative (Negative) 12/08/24 21:40 Urine Bilirubin Negative (Negative) 12/08/24 21:40 Urine Urobilinogen Negative (Negative) 12/08/24 21:40 Ur Leukocyte Esterase Negative (Negative) 12/08/24 21:40 Urine WBC (Auto) 0-5 /hpf (0-5) 12/08/24 21:40 Urine RBC (Auto) 0-2 /hpf (0-2) 12/08/24 21:40 U Hyaline Cast (Auto) 0-2 /lpf (0-2) 12/08/24 21:40 U Epithel Cells (Auto) 0-2 /hpf (0-2) 12/08/24 21:40 Urine Bacteria (Auto) None Seen (None Seen) 12/08/24 21:40 Urine Comment 12/08/24 21:40 Impressions Abdomen/Pelvis CT 12/08/24 22:34 CR Exam(s): CT ABDOMEN + PELVIS With Contrast IV Amt: 93ml opti 320 EXAM: CT Abdomen and Pelvis With Intravenous Contrast CLINICAL HISTORY: Reason for exam: lower abd pain, constipation, ventral hernias. TECHNIQUE: Axial computed tomography images of the abdomen and pelvis with intravenous contrast. CTDI is 26 mGy and DLP is 1567 mGy-cm. Automated exposure control was utilized for the study. A dose lowering technique was utilized adhering to the principles of ALARA. CONTRAST: Patient received 93ml opti 320 of IV contrast COMPARISON: Report from prior CT chest and abdomen dated 05/23/2007. Images not available. FINDINGS: Lung bases: Unremarkable. No mass. No consolidation. ABDOMEN: Liver: Hepatic steatosis. Gallbladder and bile ducts: Unremarkable. No calcified stones. No ductal dilation. Pancreas: Unremarkable. No mass. No ductal dilation. Spleen: Unremarkable. No splenomegaly. Adrenals: Unremarkable. No mass. Kidneys and ureters: Unremarkable. No solid mass. No hydronephrosis. Stomach and bowel: Colonic diverticulosis. Redundant sigmoid extends into right lower quadrant where there is wall thickening and moderate fat stranding. Small gas bubble in area of fat stranding. May represent acute diverticulitis with localized perforation. Similar focal sigmoid wall thickening in the left lower quadrant around a diverticulum and mild surrounding fat stranding. No obstruction. PELVIS: Appendix: Normal appendix. Bladder: Unremarkable. No mass. Reproductive: Unremarkable as visualized. ABDOMEN and PELVIS: Intraperitoneal space: See above. No significant fluid collection. Bones/joints: Pectus excavatum deformity. No acute fracture. No dislocation. Soft tissues: Multiple surgical clips in the anterior pelvis/prior hernia repair. Small fat containing inguinal hernias. Vasculature: Unremarkable. No abdominal aortic aneurysm. Lymph nodes: Unremarkable. No enlarged lymph nodes. IMPRESSION: Findings described likely represent acute sigmoid diverticulitis at 2 sites, in the right and left lower quadrants, with localized perforation on the right. No abscess. Also correlate with surgical history as inflammatory changes in the lower quadrants are subjacent to multiple surgical clips/hernia repair. Communications: 12/09/24 01:43 Call Doctor Regarding Above results, called Dr. Leal on 12/09 01:42 (-04:00) Electronically signed by: Cheli Graves M.D. 12/09/24 01:44 AM Pending Results Patient Have Any Pending Studies at Discharge: Yes Discharge Instructions Given to Patient (Per Discharging Provider) PLEASE REFER TO YOUR NEW MEDICATION LIST AND FOLLOW INSTRUCTIONS CAREFULLY. YOUR NEW MEDICATIONS INCLUDE: Augmentin- antibiotic for diverticulitis Probiotics- to prevent diarrhea, please take for at least 6 weeks, Biomeme brand recommended Drink plenty of water daily. YOU NEED TO HAVE A COLONOSCOPY IN 6 WEEKS. YOUR PRIMARY CARE PHYSICIAN CAN ASSIST IN ARRANGING THIS FOR YOU. PLEASE CALL YOUR PRIMARY CARE PHYSICIAN OR RETURN TO THE ER IF WITH WORSENING OF SYMPTOMS, INCLUDING ABDOMINAL PAIN, NAUSEA/VOMITING, FEVER/CHILLS, ETC FOLLOW UP WITH PRIMARY CARE PHYSICIAN OUTLINED ABOVE. Total Time Total Time Spent Total Time Spent (In Minutes): 40 minutes
== END 2024-12-12 13:40 | disposition home or self-care (01) | DRG 872 ==
LOC: ED 21:30 → EDINP 12-09 02:01 → 3N 12-09 02:46